=== PATIENT | male | born 1955 | race Caucasian/White ===

== ENCOUNTER → 2018-08-27 | Outpatient (CLI) | payer BC ==
[~2018-08-27] MED LIST: HYDROCORTISONE28 G1 TP; LEVO25TA45 PO; LEXAPRO20 MG PO
--- NOTE | 2018-08-27 15:05 | RAD ---
Left lower extremity venous ultrasound, 08/27/2018 : History: Left calf pain, injury Duplex evaluation including grayscale, color flow and spectral Doppler analysis was performed. The femoral and popliteal veins show no filling defects to suggest DVT. The visualized calf veins are unremarkable. Limited views of the calf musculature showed no mass or abnormal fluid collection. IMPRESSION: There is no sonographic evidence of deep vein thrombosis in the left lower extremity Electronically signed by: [place] Self MD (08/27/2018 3:01 PM) [facility]
== END | disposition home or self-care (01) ==
LOC: US 13:38
PROVIDERS: ATTEND Registered Nurse
DX: M79.662 Pain in left lower leg (principal); X58.XXXA Exposure to other specified factors, initial encounter; Y93.89 Activity, other specified; Y92.89 Other specified places as the place of occurrence of the external cause; Y99.8 Other external cause status
CPT/HCPCS: 93971